=== PATIENT | female | born 1955 | race African-American/Black ===

== ENCOUNTER 2017-09-15 16:06 | Outpatient (CLI) | payer OTHER | END 2017-09-15 16:07 | disposition home or self-care (01) | LOC: BICMAMMO 16:06 | PROVIDERS: ATTEND Family Medicine | DX: Z12.31 Encounter for screening mammogram for malignant neoplasm of breast (principal); Z80.3 Family history of malignant neoplasm of breast | CPT/HCPCS: 77063; 77067 ==

== ENCOUNTER 2017-11-04 11:40 | Outpatient (CLI) | payer OTHER ==
[2017-11-04 11:58] LABS: #Eosinphils 0.1 thou/uL (0.0-0.7); #Lymphocytes 2.1 thou/uL (1.20-3.40); #Monocytes 0.6 thou/uL (0.11-0.59); %Basophils 0.4 % (0.0-1.0); %Eosinophils 1.6 % (0.0-10.0); %Lymphocytes 26.6 % (21.0-51.0); %Monocytes 7.6 % (0.0-10.0); %Neutrophils 63.8 % (42.0-75.0); Hemoglobin 11.9 g/dL (12.0-16.0); Mean Corpuscular Hemoglobin 29.3 pg (27.0-31.0); Mean Corpuscular Volume 86.2 fl (81.0-99.0); Mean Platelet Volume 6.4 fL (7.4-10.4); Platelet Count 314 thou/uL (130-400); RBC Distribution Width 12.2 % (11.5-14.5); Red Blood Cell (RBC) Count 4.05 mill/uL (4.20-5.40); White Blood Cell (WBC) Count 7.9 thou/uL (4.8-10.8)
[2017-11-04 12:22] LABS: Anion Gap 10 mmol/L (10-20); BUN (Urea Nitrogen) 22 mg/dL (9.8-20.1); Calc. Creatinine Clearance 0 mL/min (70-130); Calcium 9.4 mg/dL (7.8-10.44); Carbon Dioxide 27 mmol/L (23-31); Chloride 105 mmol/L (98-107); Estimated GFR-MDRD Greater than 90; Glucose 78 mg/dL (80-115); Potassium 3.6 mmol/L (3.5-5.1); Sodium 138 mmol/L (136-145)
== END 2017-11-04 11:41 | disposition home or self-care (01) ==
LOC: LABBT 11:40
PROVIDERS: ATTEND Orthopaedic Surgery
DX: Z01.818 Encounter for other preprocedural examination (principal); G56.02 Carpal tunnel syndrome, left upper limb
CPT/HCPCS: 80048; 85025; 93005; 93010

== ENCOUNTER 2017-11-05 06:07 | Day surgery (SDC) | payer OTHER ==
[2017-11-04 11:34] VITALS: BMI 29.2
--- NOTE | 2017-11-04 17:05 | HP ---
DATE OF ADMISSION: 11/05/2017 HISTORY OF PRESENT ILLNESS: The patient is a 62-year-old female with a 2-year history of pain and ti ngling in her left hand, especially her left thumb without injury. She has had only partial relief w ith use of NSAID and wrist splint. The pain and numbness has progressed and interfering with day to day activities. She has had a previous right carpal tunnel release, performed at [facility] in 2007 with similar symptoms and good results. PAST MEDICAL HISTORY: As noted above, the patient has a history of hypertension, asthma, and hypothy roidism. PAST SURGICAL HISTORY: She has had previous and hysterectomy. CURRENT MEDICATIONS: Include Dulera, Singulair, Hyzaar, fluticasone inhaler, Synthroid, fish oil, li othyronine, and multivitamins. ALLERGIES: No known allergies. FAMILY HISTORY: Otherwise unremarkable. SOCIAL HISTORY: Otherwise unremarkable. REVIEW OF SYSTEMS: Otherwise unremarkable. PHYSICAL EXAMINATION: GENERAL: Healthy female. HEENT: Unremarkable. NECK: Supple. CHEST: Clear. HEART: Regular rate and rhythm. ABDOMEN: Soft, nontender. PELVIC/RECTAL/BREAST: Exams are deferred. EXTREMITIES: Pertinent findings of the left wrist. There is slight thenar atrophy. There are no wo unds. There is no point tenderness. There is pain with compression of the median nerve. There is f ull range of motion. There is slight weakness of thumb opposition. There is a positive Tinel sign a nd negative Phalen's test. There is subjective numbness in the thumb. There is good capillary refil l. LABORATORY AND X-RAY FINDINGS: Electrodiagnostic studies performed by Dr. Flores revealed severe le ft carpal tunnel syndrome. IMPRESSION: Left carpal tunnel syndrome. PLAN: Endoscopic possible open left carpal tunnel release. The nature of the surgery, length of rec overy, and potential complications such as infection, loss of motion, incomplete relief, nerve injury , recurrence, and need for additional treatment or repeat surgery have been discussed in detail.
[2017-11-05] MEDS ORDERED: Fentanyl 100 MCG/2 ML VIAL ONE (06:18)
[2017-11-05] MEDS ORDERED: Midazolam HCl 2 mg/2 ml Vial ONE (06:18)
[2017-11-05] MEDS ORDERED: CEFAZOLIN/Water 2 GM/20 ML SYRINGE ONE (06:28)
[2017-11-05] MEDS ORDERED: Bupivacaine PF 0.5% 30 ML VIAL ONE (06:52)
[2017-11-05] MEDS ORDERED: Lidocaine 1% (PF) 30 ML VIAL ONE (06:52)
[2017-11-05] MEDS ORDERED: Morphine 4 MG/ML VIAL ONE (08:30)
--- NOTE | 2017-11-05 10:12 | OP ---
DATE OF PROCEDURE: 11/05/2017 SURGEON: French Rodriguez M.D. ANESTHESIA: Local plus TIVA. PREOPERATIVE DIAGNOSIS: Left carpal tunnel syndrome. POSTOPERATIVE DIAGNOSIS: Left carpal tunnel syndrome. PROCEDURE: Left endoscopic carpal tunnel release. NARRATIVE REPORT: After satisfactory anesthesia was induced in supine position, the patient was prep ped and draped in routine manner. A field block was accomplished with 1% lidocaine 10 mL. The left arm was elevated, exsanguinated with an Esmarch bandage, and the tourniquet inflated to 250 mmHg. A 2 cm transverse incision was made in the proximal wrist flexion crease, carried down to subcutaneous tissues. Bleeding points controlled with cautery. Using sharp and blunt dissection, a distally base d flap at deep forearm fascia was developed and retracted distally. Palmaris longus tendon was retra cted radially. Proximal edge of the deep forearm fascia was split under direct visualization with sm all scissors to make sure there was no proximal impingement of the median nerve. Synovium elevator w as introduced beneath the transverse carpal ligament, and the synovium cleaned from the undersurface. Carpal tunnel dilators were inserted. The Dine in [place] endoscopic carpal tunnel system was introduced b eneath the transverse carpal ligament in line with the ring finger. The distal edge of the ligament was easily identified and then divided in a distal to proximal direction by pulling the trigger of th e assembly, engaging the knife, and withdrawing the scope proximally. This was done in several stage s to make sure there was complete division of the transverse carpal ligament, which was documented wi the video printer. After withdrawing the scope, a carpal tunnel dilator could be inserted into th e carpal tunnel, and there was markedly improved passage and subcutaneous position of the instrument. The scope was reintroduced into the carpal tunnel. There was wide separation of the 2 leaves of th e transverse carpal ligament. The tourniquet was released after 5 minutes. There was no excessive b leeding. The scope was withdrawn. The wound was irrigated and then closed with running subcuticular 3-0 nylon. Sterile dressing was applied. The patient immobilized in a Velcro wrist splint and take n from the operating room in stable condition. There were no apparent intraoperative complications. The estimated blood loss was negligible. The patient will be discharged home in satisfactory condition with ice, elevation, and given written wound care instructions. She was given a prescription for Adams 5 for pain, 40 tablets. She will be rechecked in my office in 10-14 days or sooner if there are any problems prior to that time.
[2017-11-05] MEDS ORDERED: HYDROcodone/Acetaminophen 5/325 mg Tablet ONE (10:32)
[2017-11-05] MEDS ORDERED: Lidocaine 1% PF 5 ML VIAL ONE (13:37)
[2017-11-05] MEDS ORDERED: PROPOFOL 200 MG/20 ML VIAL ONE (13:37)
[2017-11-05] MEDS ORDERED: Ondansetron HCl/PF 4 MG/2 ML Vial ONE (13:37)
[2017-11-05] MEDS ORDERED: Dexamethasone 20 MG/5 ML VIAL ONE (13:37)
== END 2017-11-05 11:19 | disposition home or self-care (01) ==
LOC: SDC 06:07
PROVIDERS: ATTEND Orthopaedic Surgery
PROC: 01N54ZZ Release Median Nerve, Percutaneous Endoscopic Approach (ICD-10-PCS; principal; 2017-11-05)
DX: G56.02 Carpal tunnel syndrome, left upper limb (principal); I10 Essential (primary) hypertension; E03.9 Hypothyroidism, unspecified; J45.909 Unspecified asthma, uncomplicated; Z79.899 Other long term (current) drug therapy
CPT/HCPCS: 96374; J2001; J2250; J2270; J3010; S0020